=== PATIENT | female | born 1985 | race Caucasian/White ===

== ENCOUNTER 2021-05-04 13:50 | Outpatient (CLI) | payer OTHER, SELFPAY ==
[2021-05-04 16:35] LABS: Hepatitis B Surface Antigen Negative (Negative)
[2021-05-04 16:44] LABS: HIV 1/2 Ab P24 Ag Result Negative (Negative)
[2021-05-04 16:52] LABS: Hepatitis C Virus Antibody Negative (Negative)
[2021-05-05 14:57] LABS: Rapid Plasma Reagin Non-Reactive (NonReactive)
== END 2021-05-04 13:51 | disposition home or self-care (01) ==
PROVIDERS: Visit Provider Obstetrics & Gynecology
DX: Z11.3 Encounter for screening for infections with a predominantly sexual mode of transmission (principal)
CPT/HCPCS: 36415; 86592; 86695; 86696; 86703; 86803; 87340; G0432

== ENCOUNTER 2024-04-24 07:48 | Outpatient (CLI) | payer OTHER, SELFPAY ==
--- NOTE | ~2024-04-24 | MR_ITS ---
EXAMINATION: MR ankle LT wo con DATE: 04/24/2024 08:35 INDICATION: Left ankle pain and swelling. Tendinitis. TECHNIQUE: Magnetic resonance imaging (MRI) of the left ankle was performed without intravenous contr ast. COMPARISON: None. FINDINGS: Medial ankle ligaments: The superficial and deep components of the deltoid ligament are normal. Lateral ankle ligaments: There is artifact from surgical changes of fibula and talus in the area of anterior talofibular ligam ent. Calcaneofibular ligament and posterior talofibular ligament are normal. The anterior and posteri or tibiofibular ligaments are normal. Tendons: The medial and anterior ankle tendons are normal. The peroneal tendons are normal. Achilles tendon is normal. There is a skin marker lateral to the Achilles tendon. Plantar fascia: Normal. Bones/other: Alignment is normal. No fracture. The talar dome is normal. Fluid: There is no joint effusion. IMPRESSION: 1. No etiology for the patient's symptoms. 2. Artifact from surgical changes in the area of anterior talofibular ligament. Reviewed, dictated and finalized at location A. 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
== END 2024-04-24 07:49 | disposition home or self-care (01) ==
LOC: MICIMG 07:48
PROVIDERS: PCP Podiatrist Foot & Ankle Surgery; Visit Provider Podiatrist Foot & Ankle Surgery
DX: M76.72 Peroneal tendinitis, left leg (principal)
CPT/HCPCS: 73721

== ENCOUNTER 2024-08-22 13:44 | Outpatient (CLI) | payer OTHER, SELFPAY ==
--- NOTE | 2024-08-22 14:45 | NEURO_ITS ---
Impression: # Complains of left ankle pain. Status post ankle surgery. Non- diabetic. ? # Normal Nerve Conduction Study. ? # Normal needle/EMG exam. ? # Clinical correlation recommended. Nerve Conduction Studies Anti Sensory Summary Table ?Stim Site NR Peak (ms) P-T Amp (?V) Site1 Site2 Delta-P (ms) Dist (cm) Breezy (m/s) Left Sup Fibular Anti Sensory (Ant Lat Mall) 14 cm ? 2.8 24.0 14 cm Ant Lat Mall 2.8 16.0 57 Right Sup Fibular Anti Sensory (Ant Lat Mall) 14 cm ? 2.8 24.8 14 cm Ant Lat Mall 2.8 16.0 57 Left Sural Anti Sensory (Lat Mall) Calf ? 3.0 16.4 Calf Lat Mall 3.0 16.0 53 Right Sural Anti Sensory (Lat Mall) Calf ? 2.2 32.2 Calf Lat Mall 2.2 12.0 55 Motor Summary Table ?Stim Site NR Onset (ms) O-P Amp (mV) Site1 Site2 Delta-0 (ms) Dist (cm) Breezy (m/s) Left Peroneal Motor (Vastus Med) Ankle ? 3.3 5.1 Popit Ankle 7.0 39.0 56 Popit ? 10.3 6.1 Right Peroneal Motor (Vastus Med) Ankle ? 3.2 5.6 Popit Ankle 6.6 37.0 56 Popit ? 9.8 5.2 Left Tibial Motor (Abd Morton Brev) Ankle ? 3.7 13.5 Knee Ankle 7.8 42.0 54 Knee ? 11.5 10.8 Right Tibial Motor (Abd Morton Brev) Ankle ? 3.8 14.2 Knee Ankle 7.9 41.0 52 Knee ? 11.7 10.9 F Wave Studies ?NR F-Lat (ms) L-R F-Lat (ms) Left Peroneal (Mrkrs) (EDB) ? 42.69 2.22 Right Peroneal (Mrkrs) (EDB) ? 40.47 2.22 Left Tibial (Mrkrs) (Abd Hallucis) ? 43.00 0.04 Right Tibial (Mrkrs) (Abd Hallucis) ? 43.04 0.04 EMG ?Side Muscle Nerve Root Ins Act Fibs Amp Dur Recrt Comment Right AntTibialis Dp Br Fibular L4-5 Nml Nml Nml Nml Nml Right Gastroc Tibial S1-2 Nml Nml Nml Nml Nml Right Fibularis Long Sup Br Fibular L5-S1 Nml Nml Nml Nml Nml Right Flex Dig Long Tibial L5-S2 Nml Nml Nml Nml Nml Right Ext Dig Brev Dp Br Fibular L5, S1 Nml Nml Nml Nml Nml Right QuadratusFem QuadFemoris L4-5, S1 Nml Nml Nml Nml Nml Left AntTibialis Dp Br Fibular L4-5 Nml Nml Nml Nml Nml Left Gastroc Tibial S1-2 Nml Nml Nml Nml Nml Left Fibularis Long Sup Br Fibular L5-S1 Nml Nml Nml Nml Nml Left Flex Dig Long Tibial L5-S2 Nml Nml Nml Nml Nml Left Ext Dig Brev Dp Br Fibular L5, S1 Nml Nml Nml Nml Nml Left QuadratusFem QuadFemoris L4-5, S1 Nml Nml Nml Nml Nml MTDD
--- OUTSIDE RECORDS SUMMARY | 2024-08-22 15:31 | XMS_ITS | Clinical Summary ---
Author Organization [facility] [place] [address] Address [address] [place] [address] Care Team Providers Care Return Checker Name Role Phone Gauri Gallegos NP Primary Care Provide r Allergies Active Allergy Reactions Criticality Noted Date Comments Amoxicillin Shortness of breath,Edema,Wheezing Medium Reaction: Trouble Breathing, Clindamycin Hives Reaction: hives, Hydrocodone Itching Low 12/03/2022 Potassium Shortness of breath Reaction: Trouble Breathing, Pregabalin Hives Medium Reaction: Hives, Medications albuterol HFA (PROVENTIL HFA,VENTOLIN HFA,PROAIR HFA) 90 mcg/actuation inhaler Inhale 2 puffs every 6 (six) hours as needed for wheezing 1 each 05/29/2023 Active Active Problems Problem Noted Date Diagnosed Date Exercise counseling 04/23/2022 Assessment & Plan (04/23/2022 12:26 PM DIRECTOR OF CARDIAC REHABILITATION): Exercise counseling provided. Prescription given to the patient. See below: Major depressive disorder, recurrent episode, mo derate 03/11/2022 Assessment & Plan (03/11/2022 8:55 AM DIRECTOR OF CARDIAC REHABILITATION): Acute, persistent. Denies any active suicidal ideation. Did not tolerate Wellbutrin. Plan to start Viibryd 20 mg daily and evaluate in six weeks. Patient verbalized an understanding and agrees to proceed. Nightmares 04/30/2021 Assessment & Plan (07/23/2021 10:55 AM CDT): Subacute, persistent. Prazosin prescribed. 1 to 2 mg as discussed. May increase as discussed gradually to 5 mg. Will need to call back for prescription if needed. Monitor at interval as discussed. Assessment & Plan (04/30/2021 10:14 AM DIRECTOR OF CARDIAC REHABILITATION): Discussed use of Prazosin. She will call if frequency increases - and I will prescribe Prazosin 1-2 mg HS prn. Continue therapy. Continue to monitor. Relationship problems 11/14/2020 Assessment & Plan (11/14/2020 9:54 AM CDT): She reports that she is leaving her . She is going to [place] today with her kids. She has to be back for work in November. I can't do the selfishness, the double standards, I'm not happy. I've tried and tried. It's always my fault. Shannon, 15 year-old, her step-daughter - she fears losing her in the process. She has raised her since she was 6 years old. She has siblings with her mom - and Shannon fears she will lose her siblings if the patient adopts her. Her kids are 15, 9, 6, and 4. Suggested that she the therapist. Obesity (BMI 30.0-34.9) 11/14/2020 Assessment & Plan (11/14/2020 9:59 AM CDT): I discussed with the patient the use of phentermine as a tool to facilitate targeted weight loss. The benefit of using this medication was discussed at length the patient. Review risk of using this medication was also discussed with the patient. After lengthy discussion, it was determined that the benefit of using this medication outweighs the risk of using the medication. The patient verbalized an understanding of the benefit and risk of this medication and agreed to proceed with use of this medication. Goals for weight loss were discussed with the patient. Current weight: 178 lbs Target weight by next appointment: 150 lbs Long-term target weight: 128 lbs We discussed the need for lifestyle modification including changes to diet, incorporate regularly scheduled exercise, obtain sufficient sleep/maintaining proper sleep hygiene, and reduce overall level of stress. I had a detailed discussion with the patient regarding the potential of developing both acute and chronic cardiovascular problems from use of this medication. I advised the patient of the potential for serious reactions from taking phentermine including cardiac ischemia, tachycardia, hypertension, pulmonary hypertension, psychosis, dependency/abuse, and possible withdrawal symptoms discussed with the patient. I also advised the patient of common reactions including palpitations, tachycardia, elevated blood pressure, restlessness, dizziness, insomnia, euphoria, dysphoria, tremor, headache, unpleasant taste, diarrhea, constipation, urticaria, impotence, libido changes also discussed with the patient. The patient verbalized an understanding of possible serious and common reactions and expressed a desire to proceed with treatment. The patient was advised by me and agreed to discontinue the medication immediately if any of these symptoms were to develop. The patient was advised by me and agreed to proceed with urgent medical care if any of the aforementioned symptoms were to develop. The patient also agreed to participate in an overall lifestyle modification program including changes to intake of nutrients, physical activity as discussed and appropriate, proper sleep including treatment of obstructive sleep apnea as applicable, and participation in social activity, meditation, deep breathing, or other relaxation techniques as discussed. The patient agreed to track caloric intake with a journal, utilize an application for monitoring intake of calories such as Lose It or [employer] , or other programs such as Weight Watchers. I will re-evaluate treatment with the patient again at the next scheduled appointment. Other insomnia 02/02/2018 Assessment & Plan (11/18/2022 1:44 PM CDT): Chronic condition, currently stable. Advised the patient to focus on sleep hygiene. The patient does not report any worsening sleep-related difficulties at this time. Supportive, insight-oriented counseling provided. No change to treatment regimen at this time. Assessment & Plan (04/23/2022 12:26 PM DIRECTOR OF CARDIAC REHABILITATION): Chronic condition, currently stable. Advised the patient to focus on sleep hygiene. The patient does not report any worsening sleep-related difficulties at this time. Supportive, insight-oriented counseling provided. No change to treatment regimen at this time. Assessment & Plan (12/08/2021 3:45 PM CDT): Chronic, persistent. Nightmares making difficult to be able to sleep. Assessment & Plan (04/30/2021 10:06 AM DIRECTOR OF CARDIAC REHABILITATION): Chronic, persistent. Better with Seroquel. Plan to continue - off-label. Focus on sleep hygiene. Continue to monitor. Assessment & Plan (07/25/2020 9:27 AM CDT): Chronic, persistent. Focus on sleep hygiene. No change to treatment at this time. Continue to monitor. Assessment & Plan (03/09/2019 3:45 PM DIRECTOR OF CARDIAC REHABILITATION): Increase trazodone to 100 mg at bedtime. Assessment & Plan (10/29/2018 6:36 PM CDT): Chronic, persistent. Decrease trazodone due to side effects/intolerance. Assessment & Plan (10/09/2018 11:57 AM CDT): Chronic condition, currently stable. The patient does not report any worsening sleep-related difficulties at this time. No change to treatment regimen at this time. Supportive, insight-oriented counseling provided in the office today. Assessment & Plan (02/02/2018 9:41 AM CDT): Chronic issue, persistent symptoms, getting only 2 hr of sleep according to which he reports in the form of a nap in the afternoon. Discussed at length with the patient the importance of sleep hygiene. Focus on sleep hygiene. Change the Zoloft to the morning as discussed. Start trazodone 50 mg p.o. q.h.s.. The patient may take half of this dose or a full dose. Titrate up for effectiveness. If the patient calls and wants to increase the dose to 100 mg, I would be okay with doing so. Continue to monitor. Persistent depressive disorder 12/15/2017 Overview (01/12/2018): Managed by psychiatry. Assessment & Plan (11/18/2022 1:42 PM CDT): Chronic, stable. Depressive symptoms are well controlled on current medication regimen. Tolerating medications without any reported side effects. The patient denies active suicidal and homicidal ideation. The following changes were made at today's appointment: none Reevaluate treatment/symptoms at interval per scheduled appointment. Assessment & Plan (09/09/2022 11:58 AM CDT): Chronic, stable. Depressive symptoms are well controlled on current medication regimen. Tolerating medications without any reported side effects. The patient denies active suicidal and homicidal ideation. The following changes were made at today's appointment: none Reevaluate treatment/symptoms at interval per scheduled appointment. Assessment & Plan (04/23/2022 12:25 PM DIRECTOR OF CARDIAC REHABILITATION): Chronic condition, persistent symptoms, but functioning at or close to baseline at this time. Symptoms are reasonably well controlled on current medication regimen. The patient does not endorse any active suicidal ideation. Medication changes today: None Ongoing management to be provided as discussed and at interval as planned. Assessment & Plan (10/19/2021 4:15 PM CDT): Chronic,persistent. The patient denies active suicidal and homicidal ideation. The following changes were made at today's appointment: Wellbutrin XL 150 mg daily Reevaluate treatment/symptoms at interval per scheduled appointment. Assessment & Plan (04/30/2021 10:13 AM DIRECTOR OF CARDIAC REHABILITATION): Chronic, persistent. Depressive symptoms are partially well controlled on current medication regimen. Tolerating medications without any reported side effects. The patient denies active suicidal and homicidal ideation. The following changes were made at today's appointment: None Reevaluate treatment/symptoms at interval per scheduled appointment. Assessment & Plan (02/12/2021 3:10 PM CDT): Chronic, stable. Denies any active suicidal ideation. Continue current management. Assessment & Plan (11/14/2020 10:01 AM CDT): Chronic, stable. Denies any active suicidal ideation. Continue current medications. Assessment & Plan (07/25/2020 9:31 AM CDT): Chronic, persistent. She has reportedly gained 50 lb of weight without obvious etiology. Thyroid studies ordered. Additional lab work ordered. Denies any active suicidal ideation. Complaining about decreased libido secondary to Prozac. Primarily reports that her is complaining more than she is having complaints as such. Continue Prozac at current dose and add lamotrigine with workup in process to rule out underlying thyroid dysfunction. Evaluate at interval as discussed. Assessment & Plan (03/09/2019 3:47 PM DIRECTOR OF CARDIAC REHABILITATION): Chronic, persistent. Discuss treatment options with the patient. Would prefer to add low-dose lamotrigine for symptomatic control of depression and increase Zoloft to 200 mg-but patient does not wish to do so. Also confounded by her in sufficient amount of sleep--reportedly only getting 5 hours per night. She goes to bed but cannot fall asleep for several hours. Trazodone will be increased. The patient does not report any current suicidal or homicidal ideation. The patient does not report any auditory or visual hallucinations. The patient does not report any paranoid ideation. The patient does not report any symptoms of hypomania or miranda. Patient would like to discontinue Zoloft. Feels it is not as efficacious as it was in the past. While I do not necessarily agree with her, she is fairly insistent and eventually agreed to cross titrate Zoloft with Prozac. Assessment & Plan (10/29/2018 6:36 PM CDT): Chronic, stable. Depressive symptoms are partially controlled on current medication regimen. Tolerating medications without any reported side effects. The patient denies active suicidal and homicidal ideation. The following changes were made at today's appointment: Increased Zoloft. Reevaluate treatment/symptoms at interval per scheduled appointment. Assessment & Plan (10/09/2018 11:58 AM CDT): Chronic, stable. Depressive symptoms are well controlled on current medication regimen. Tolerating medications without any reported side effects. The patient denies active suicidal and homicidal ideation. The following changes were made at today's appointment: None. Reevaluate treatment/symptoms at interval per scheduled appointment. Assessment & Plan (02/02/2018 9:03 AM CDT): Chronic, seems to have improved since starting Zoloft. Doing better overall. Denies any suicidal or homicidal ideation. Continue Zoloft 50 mg daily. Assessment & Plan (12/15/2017 12:00 PM CDT): Chronic issue, currently untreated. Dean depression inventory completed in the office today with a total score of 35. Moderate severity. The patient does not report any current suicidal or homicidal ideation. The patient does not report any auditory or visual hallucinations. The patient does not report any paranoid ideation. The patient does not report any symptoms of hypomania or miranda. Start Zoloft 50 mg daily. Full informed consent provided by the patient to initiate Zoloft. The patient verbalized an understanding of the reason for initiate Zoloft including the diagnosis and target symptoms for the medication recommended, the possible benefits and/or intended outcome of treatment, and as applicable, all available procedures involved in the proposed treatment, the possible risks and side effects, (including risk of medications to women and women who are ), the possible alternatives and complementary treatments, the possible results of not taking the recommended medications, (including but not limited to worsening symptoms, psychiatric instability, and even ), the possibility that this medication dose and/or frequency may need to be adjusted over time in consultation with Dr. Pérez. The patient verbalized an understanding of the need for ongoing medical and psychiatric monitoring on an interval basis. At this time, the patient verbalizes full consent to initiate Zoloft and understands the benefits and risks and wishes to proceed with full, informed consent. Referral to the therapist. Referral also for trauma focused therapy regarding childhood issues. Posttraumatic stress disorder 12/15/2017 Overview (01/12/2018): Managed by psychiatry. Assessment & Plan (11/18/2022 1:43 PM CDT): Chronic, better now. Denies SI. Continue to monitor at interval. Assessment & Plan (09/09/2022 11:58 AM CDT): Chronic, persistent. Increased since going back to [place] for a wedding. Continue to monitor at interval. Assessment & Plan (04/23/2022 12:25 PM DIRECTOR OF CARDIAC REHABILITATION): Chronic, persistent, but functioning at or close to baseline at this time. Continue with therapy. Continue to monitor. Assessment & Plan (03/11/2022 8:56 AM DIRECTOR OF CARDIAC REHABILITATION): Chronic, persistent, continue therapy. Viibryd to be started. Continue to monitor. Assessment & Plan (12/08/2021 3:48 PM CDT): Chronic, persistent. Continue therapy. Assessment & Plan (10/19/2021 4:07 PM CDT): Chronic, stable. Continue with therapy. Assessment & Plan (04/30/2021 3:08 PM DIRECTOR OF CARDIAC REHABILITATION): Subacute, persistent. Linked with therapist. Continue therapy. Continue to monitor. Assessment & Plan (02/12/2021 3:10 PM CDT): Chronic, stable. No medication changes at this time. Continue to monitor at interval. Assessment & Plan (07/25/2020 9:28 AM CDT): Chronic, persistent. Did not address today. Assessment & Plan (10/29/2018 6:36 PM CDT): Chronic, persistent, continue therapy. Zoloft increased. Continue to monitor. Assessment & Plan (02/02/2018 9:03 AM CDT): Chronic, persistent. Continue Zoloft. Continue therapy. She just started seeing the therapist in the office and has several appointments Assessment & Plan (12/15/2017 12:00 PM CDT): Chronic, persistent symptoms. Start Zoloft 50 mg daily and monitor. Referral to therapist. Trauma in childhood 12/15/2017 Assessment & Plan (12/15/2017 12:01 PM CDT): Referral provided to therapist. Alli score = six. ARTURO (generalized anxiety disorder) 12/15/2017 Overview (01/12/2018): Managed by psychiatry. Assessment & Plan (11/18/2022 1:44 PM CDT): Chronic condition with persistent symptoms. Medication changes today: none Insight-oriented, supportive counseling provided. Continued management as discussed Assessment & Plan (09/09/2022 11:57 AM CDT): Chronic condition with persistent symptoms. Medication changes today: Propranolol 20 mg TID prn for moderate anxiety + Lorazepam 0.5 mg daily prn for severe anxiety Insight-oriented, supportive counseling provided. Continued management as discussed Assessment & Plan (04/23/2022 12:25 PM DIRECTOR OF CARDIAC REHABILITATION): Chronic condition with persistent symptoms. Medication changes today: None Insight-oriented, supportive counseling provided. Continued management as discussed Assessment & Plan (03/11/2022 8:56 AM DIRECTOR OF CARDIAC REHABILITATION): Chronic condition with persistent symptoms. Medication changes today: Start Viibryd 20 mg daily. Titrate up as needed for effectiveness. Insight-oriented, supportive counseling provided. Continued management as discussed Assessment & Plan (12/08/2021 3:48 PM CDT): Chronic condition, persistent. The patient does not report any worsening anxiety at this time. Medication changes today: None Supportive, insight-oriented counseling provided. Ongoing monitoring of treatment will be provided. Assessment & Plan (10/19/2021 11:44 AM CDT): Chronic, persistent. Assessment & Plan (04/30/2021 10:13 AM DIRECTOR OF CARDIAC REHABILITATION): Acute, persistent. Increase buspirone from 10 mg BID to 20 mg BID. Monitor at interval in 1 month as discussed. Assessment & Plan (02/12/2021 3:09 PM CDT): Chronic, persistent. Continue Prozac 40 mg daily. Start Buspirone 10 mg daily for 2 weeks and if tolerating, then increase to 10 mg BID Monitor in 4-6 weeks. Assessment & Plan (11/14/2020 10:00 AM CDT): Chronic, stable. No medication changes at this time. Continue to monitor at interval. Assessment & Plan (07/25/2020 9:28 AM CDT): Chronic condition, persistent but stable symptoms. Medication changes today: Lamotrigine added for depressive symptoms. Remains on Prozac. Continue management as discussed. Support provided. Assessment & Plan (03/09/2019 3:44 PM DIRECTOR OF CARDIAC REHABILITATION): Chronic, persistent. Cross titrate the Zoloft with Prozac as discussed. Monitor at interval. Assessment & Plan (10/29/2018 6:36 PM CDT): Chronic condition, currently stable. The patient does not report any worsening anxiety at this time. Medication changes today: Decrease dose of propranolol, increase Zoloft Supportive, insight-oriented counseling provided in the office today. Ongoing monitoring of treatment will be provided. The patient has been advised to contact the office for any concerns between now and next scheduled appointment. The patient verbalized an understanding of the plan developed today and agreed to follow up as recommended. Assessment & Plan (10/09/2018 11:58 AM CDT): Chronic, persistent symptoms of anxiety that would benefit with return to therapy. Financial impediment/barrier. Ativan prescribed. Continue Zoloft. Referred to therapy. Assessment & Plan (02/02/2018 9:02 AM CDT): Chronic, persistent symptoms of anxiety related to multiple psychosocial to situations and also sleep deprivation. Targeting sleep with medication. Also suggested switching to Zoloft to the morning so that her sleep can improvement overall her anxiety improves. Continue Zoloft 50 mg daily and if the patient is using more of the Valium than once daily, I will increase the dose of Zoloft to 100 mg daily. Increase Valium to 10 mg daily as discussed with the patient the office today. Do not drive while taking this medication. Do not use alcohol taking this medication. Patient verbalized an understanding and agreed to do so. Assessment & Plan (12/15/2017 12:01 PM CDT): F41.1 - Generalized Anxiety Disorder - chronic, persistent symptoms of Generalized Anxiety Disorder including restlessness or feeling of feeling keyed up or on edge, being easily fatigued, difficulty concentrating or mind going blank, irritability, muscle tension, and sleep disturbance. The patient reports that the anxiety, worry, or physical symptoms cause clinically significant distress or impairment in social, occupational, or other important areas of functioning. Initiate the following medications: - Zoloft 50 mg daily Valium 5 mg up to once daily for acute anxiety only Full informed consent provided by the patient to start/continue the current medication (or medications). The patient verbalized an understanding of the reason for initiating/continuing including the diagnosis and target symptoms for the medication recommended, the possible benefits and/or intended outcome of treatment, and as applicable, all available procedures involved in the proposed treatment, the possible risks and side effects, (including risk of medications to women and women who are ), the possible alternatives and complementary treatments, the possible results of not taking the recommended medications, (including but not limited to worsening symptoms, psychiatric instability, and even ), the possibility that this medication dose and/or frequency may need to be adjusted over time in consultation with Dr. Pérez. The patient verbalized an understanding of the need for ongoing medical and psychiatric monitoring on an interval basis. At this time, the patient verbalizes full consent to initiate/continue and understands the benefits and risks and wishes to proceed with full, informed consent. - supportive, insight-oriented counseling provided in the office today. - the patient is not participating in therapy I will see the patient back in the office in six weeks or sooner as needed. Essential thrombocythemia (CMS/HCC) 01/22/2013 Overview (03/09/2022): Already had a work-up with hematology at [facility] Assessment & Plan (01/12/2018 3:20 PM CDT): Has been worked-up in the past, but would like to see a local Heme/Onc. Referral generated. Migraines 01/22/2013 Immunizations Immunization Administration Dates Next Due Influenza, Trivalent, Preservative Free, Intramu scular 01/22/2016 Influenza, Unspecified 01/30/2018,01/01/2016 PPD TEST 07/07/2020 Tdap 12/23/2015 Surgical History Surgery Date Site/Laterality Comments TUBAL LIGATION tubal ligation Medical History Medical History Date Comments Essential thrombocythemia (HCC) Essential thrombocytosis Depression Vision problems 2018 Family History Medical History Relation Name Comments Hypertension Brother Hypertension Mother Hypertension Other Family history of Hypertension; Relation Name Status Comments Brother Mother Alive Other Social History Tobacco Use Types Packs/Day Years Used Date Smoking Tobacco: Never Smokeless Tobacco: Never Alcohol Use Standard Drinks/Week Comments Yes 0 (1 standard drink = 0.6 oz pur e alcohol) PHQ-2 Answer Date Recorded PHQ-2 Score 1 12/22/2018 Personal Safety Answer Date Recorded Have you ever been in or are you currently in a harmful physical or emotional relationship or is someone making you feel afraid or unsafe? Denies 09/16/2023 Comments No Sex and Gender Information Value Date Recorded Sex Assigned at Not on file Legal Sex Female 10:14 PM DIRECTOR OF CARDIAC REHABILITATION Gender Identity Female 10/05/2018 11:20 AM CDT Sexual Orientation Straight 10/05/2018 11 :20 AM CDT Obstetrics History Last Filed Vital Signs Vital Sign Reading Time Taken Comments Blood Pressure 117/72 09/16/2023 12:15 PM CDT Pulse 71 09/16/2023 12:15 PM CDT Temperature 36.4 C (97.6 F) 09/16/2023 7:50 AM CDT Respiratory Rate 17 09/16/2023 12:15 PM CDT Oxygen Saturation 97% 09/16/2023 12:15 PM CDT Inhaled Oxygen Concentration - - Weight 77.1 kg (170 lb) 09/16/2023 7:50 AM CDT Height 160 cm (5' 3 ) 09/16/2023 7:50 AM CDT Body Mass Index 30.11 09/16/2023 7:50 AM CDT Plan of Treatment Health Maintenance Due Date Last Done Comments Hepatitis C Screening 1987 Varicella Vaccines (1 of 2 - 13+ 2-dose series) 2000 Hepatitis B Screening 2005 Cervical Cancer Screening 05/02/2016 05/02/2015 Depression Screening 01/12/2019 01/12/2018, 06/26/2017, 06/26/2017 Regular Well Visit/Exam 18-64 01/12/2019 01/12/2018 Covid-19 Vaccine (2023-2 5 season) 2024 01/17/2021, 12/27/2020 Influenza Vaccine (Season Ended) 2024 01/30/2018, 01/22/2016, 01/01/2016 DTaP/Tdap/Td Vaccine (2 - Td or Tdap) 12/22/2025 12/23/2015 HPV Vaccines Aged Out No longer eligi ble based on patient's age to complete this topic Pneumococcal vaccine <65 Aged Out No longer eligible based on patient's age to complete this topic Procedures Procedure Name Priority Date/Time Associated Diagnosis Comments PAP SMEAR WITH HPV Routine 05/02/2015 from Last 3 Months or Most Recently Relevant to Health Maintenance Results * PAP SMEAR WITH HPV (05/02/2015) Pap smear Normal [facility] Provider MD HEALTH MAINTENANCE Final Result from Last 3 Months or Most Recently Relevant to Health Maintenance Insurance [facility] Care Teams Return Checker Relationship Specialty Start Date End Date Gauri Gallegos NP [address] [place] [address] PCP - General Emergency Medicine 05/26/23
--- OUTSIDE RECORDS SUMMARY | 2024-08-22 15:31 | XMS_ITS | Referral Summary ---
Author Organization [facility] [place] [address] Address [address] [place] [address] Care Team Providers Care Mechanical And Auto Body Car Checker Name Role Phone Gauri Gallegos NP [...] 04/23/2022 Assessment & Plan (04/23/2022 12:26 PM SOLE SKIVER): Exercise counseling provided. Prescription given to the patient. See below: Major depressive disorder, recurrent episode, mo derate 03/11/2022 Assessment & Plan (03/11/2022 8:55 AM SOLE SKIVER): Acute, persistent. Denies any active suicidal ideation. [...] discussed. Assessment & Plan (04/30/2021 10:14 AM SOLE SKIVER): Discussed use of Prazosin. She will call if frequency increases - and I will prescribe Prazosin 1-2 mg HS prn. Continue therapy. Continue to monitor. Relationship problems 11/14/2020 Assessment & Plan (11/14/2020 9:54 AM CDT): She reports that she is leaving her . She is going to [place] today with her kids. She has to [...] of calories such as Lose It or Variable , or other programs such as Weight [...] time. Assessment & Plan (04/23/2022 12:26 PM SOLE SKIVER): Chronic condition, currently stable. Advised the patient to focus on sleep hygiene. The patient does not report any worsening sleep-related difficulties at this time. Supportive, insight-oriented counseling provided. No change to treatment regimen at this time. Assessment & Plan (12/08/2021 3:45 PM CDT): Chronic, persistent. Nightmares making difficult to be able to sleep. Assessment & Plan (04/30/2021 10:06 AM SOLE SKIVER): Chronic, persistent. Better with Seroquel. Plan to continue - off-label. Focus on sleep hygiene. Continue to monitor. Assessment & Plan (07/25/2020 9:27 AM CDT): Chronic, persistent. Focus on sleep hygiene. No change to treatment at this time. Continue to monitor. Assessment & Plan (03/09/2019 3:45 PM SOLE SKIVER): Increase trazodone to 100 mg at bedtime. [...] appointment. Assessment & Plan (04/23/2022 12:25 PM SOLE SKIVER): Chronic condition, persistent symptoms, but functioning at [...] appointment. Assessment & Plan (04/30/2021 10:13 AM SOLE SKIVER): Chronic, persistent. Depressive symptoms are partially well [...] discussed. Assessment & Plan (03/09/2019 3:47 PM SOLE SKIVER): Chronic, persistent. Discuss treatment options with the [...] interval. Assessment & Plan (04/23/2022 12:25 PM SOLE SKIVER): Chronic, persistent, but functioning at or close to baseline at this time. Continue with therapy. Continue to monitor. Assessment & Plan (03/11/2022 8:56 AM SOLE SKIVER): Chronic, persistent, continue therapy. Viibryd to be started. Continue to monitor. Assessment & Plan (12/08/2021 3:48 PM CDT): Chronic, persistent. Continue therapy. Assessment & Plan (10/19/2021 4:07 PM CDT): Chronic, stable. Continue with therapy. Assessment & Plan (04/30/2021 3:08 PM SOLE SKIVER): Subacute, persistent. Linked with therapist. Continue therapy. [...] discussed Assessment & Plan (04/23/2022 12:25 PM SOLE SKIVER): Chronic condition with persistent symptoms. Medication changes today: None Insight-oriented, supportive counseling provided. Continued management as discussed Assessment & Plan (03/11/2022 8:56 AM SOLE SKIVER): Chronic condition with persistent symptoms. Medication changes [...] persistent. Assessment & Plan (04/30/2021 10:13 AM SOLE SKIVER): Acute, persistent. Increase buspirone from 10 mg [...] provided. Assessment & Plan (03/09/2019 3:44 PM SOLE SKIVER): Chronic, persistent. Cross titrate the Zoloft with [...] Already had a work-up with hematology at [facility] Assessment & Plan (01/12/2018 3:20 PM CDT): Has been worked-up in the past, but would like to see a local Heme/Onc. Referral generated. Migraines 01/22/2013 Immunizations Immunization Administration Dates Next Due Influenza, Trivalent, Preservative Free, Intramu scular 01/22/2016 Influenza, Unspecified 01/30/2018,01/01/2016 PPD TEST 07/07/2020 Tdap 12/23/2015 Social History Tobacco Use Types Packs/Day Years [...] on file Legal Sex Female 10:14 PM SOLE SKIVER Gender Identity Female 10/05/2018 11:20 AM CDT Sexual Orientation Straight 10/05/2018 11 :20 AM CDT Last Filed Vital Signs Vital Sign Reading [...] 09/16/2023 7:50 AM CDT Plan of Treatment Not on file Procedures Procedure Name Priority Date/Time Associated Diagnosis Comments PAP SMEAR WITH HPV Routine 05/02/2015 from Last 3 Months or Most Recently Relevant to Health Maintenance Results * PAP SMEAR WITH HPV (05/02/2015) Pap smear Normal us Historical Provider HEALTH MAINTENANCE Final Result from Last 3 Months or Most Recently Relevant to Health Maintenance Insurance [facility] Care Teams Mechanical And Auto Body Car Checker Relationship Specialty Start Date End Date Gauri Gallegos NP [address] [place] [address] PCP - General Emergency Medicine 05/26/23
--- OUTSIDE RECORDS SUMMARY | 2024-08-22 15:31 | XMS_ITS | Clinical Summary ---
Author Organization [facility] Address [address] [place] [id number] Care Team Providers Care Bedspread Seamer Name Role Phone Unavailable Primary Care Provider Unavailabl e Encounters Date Type Department Care Team Description 05/29/2024 External Device Data [facility] ABSTRACTION Provider, Abstract from Last 3 Months Social History Tobacco Use Types Packs/Day Years Used Date Smoking Tobacco: Never Assessed Comments Unknown Sex and Gender Information Value Date Recorded Sex Assigned at Not on file Legal Sex Female 3:10 PM UNIT TRUST MANAGER Gender Identity Not on file Sexual Orientation Not on file Plan of Treatment Health Maintenance Due Date Last Done Comments HEPATITIS B VACCINES (1 of 3 - 19+ 3-dose series) 2006 HPV/Cotest (21-29) 2008 CERVICAL CANCER SCREENING 2017 HPV/Cotest (30-65) 2017 PAP SMEAR 2017 INFLUENZA VACCINE (#1) 2023 01/22/2016 DTAP/TDAP/TD VACCINES (2 - T d or Tdap) 12/22/2025 12/23/2015 HPV VACCINES Aged Out No longer eligi ble based on patient's age to complete this topic Insurance [employer] MANAGED CHOICE
--- OUTSIDE RECORDS SUMMARY | 2024-08-22 15:31 | XMS_ITS | Encounter Summary ---
Author Organization [facility] Address [address] [place] [address] Phone Care Team Providers Care Graduate School Dean Name Role Phone Gauri Gallegos APRN, CNP [facility] Reason for Referral * Consult, Test & Initiate Treatment (Routine) - Closed Specialty Diagnoses / Procedures Referred By Adwoa munoz Referred To Contact Diagnoses Essential thrombocythemia (HCC) Gauri Gallegos APRN, CAPTAIN/CHECK AIRMAN [address] [place] [address] Phone: tel: fax: [facility] [address] [place] [phone] Phone: tel: fax: Referral ID Status Reason Start Date Expiration Date Visits Re quested Visits Authorized [id number] Closed 06/21/2024 1 1 Scheduling Instructions Gauri is being referred to hematology or other specialist in patient's insurance network for thrombocythemia. See below for Gauri's current medications, allergies and problem list. CURRENT MEDS: Current Outpatient Medications: atorvastatin (LIPITOR) 20 MG Tablet, Take 1 Tablet by mouth nightly., Disp: 90 Tablet, Rfl: 3 gabapentin (NEURONTIN) 300 MG Capsule, Take 300 mg by mouth nightly., Disp: , Rfl: propranolol (INDERAL) 10 MG Tablet, Take 1 Tablet by mouth 3 times daily. As needed for anxiety, Disp: 90 Tablet, Rfl: 3 triamcinolone (KENALOG) 0.1 % Ointment, Rub small amount well into affected skin BID, Disp: 30 g, Rfl: 0 Vilazodone HCl 40 MG Tablet, Take 1 Tablet by mouth daily., Disp: 90 Tablet, Rfl: 1 No current facility-administered medications for this visit. ALLERGIES: -- Amoxicillin -- Anaphylaxis -- Clindamycin -- Hives -- Reaction: hives, -- Hydrocodone -- Itching PROBLEM LIST: Patient Active Problem List: Essential thrombocythemia (HCC) Major depressive disorder, recurrent episode, moderate (HCC) ARTURO (generalized anxiety disorder) Posttraumatic stress disorder TING WORKER SUPERVISOR Encounter Details Date Type Department Care Team (Late st Contact Info) Description 06/21/2024 Results Follow-Up [facility] [place] [address] [place] [address] Gauri Gallegos APRN, CNP [address] [place] [address] THYROID STIMULATING HORMONE (TSH), LIPID PANEL, CMP (COMPREHENSIVE METABOLIC PANEL), Additional followed-up results: 5 Social History Tobacco Use Types Packs/Day Years Used Date Smoking Tobacco: Never Smokeless Tobacco: Never Alcohol Use Standard Drinks/Week Comments Yes 0 (1 standard drink = 0.6 oz pur e alcohol) [employer] Utilities Answer Date Recorded In the past 12 months has [employer], Language [employer], oil, or water [employer] threatened to shut off services in your home? No 06/18/2024 Social Connection and Isolat ion Panel [NHANES] Answer Date Recorded In a typical week, how many times do you talk on the phone with family, friends, or neighbors? More than three times a week 06/18/2024 How often do you get togethe r with friends or relatives? Three times a week 06/18/2024 How often do you attend [facility] or christian services? Never 06/18/2024 Do you belong to any clubs o r organizations such as methodist groups, unions, fraternal or athletic groups, or school groups? Yes 06/18/2024 How often do you attend meet ings of the clubs or organizations you belong to? 1 to 4 times per year 06/18/2024 Are you , , di vorced, , never , or living with a partner? 06/18/2024 AUDIT-C Answer Date Recorded Q1: How often do you have a drink containing alc ohol? 2-4 times a month 06/18/2024 Q2: How many drinks containi ng alcohol do you have on a typical day when you are drinking? 1 or 2 06/18/2024 Q3: How often do you have si x or more drinks on one occasion? Never 06/18/2024 Overall Financial Resource Strain (CARDIA) Answe r Date Recorded How hard is it for you to pa y for the very basics like food, housing, medical care, and heating? Patient declined 06/18/2024 PHQ-2 Answer Date Recorded Total Score - Questions 1-9 0 06/02 [facility]at ional [facility] - Occupational Stress Questionnaire Answer Date Recorded Do you feel stress - tense, restless, nervous, or anxious, or unable to sleep at night because your mind is troubled all the time - these days? Very much 06/18/2024 Exercise Vital Sign Answer Date Recorde d On average, how many days pe r week do you engage in moderate to strenuous exercise (like a brisk walk)? 0 days 06/18/2024 On average, how many minutes do you engage in exercise at this level? 0 min 06/18/2024 Hunger Vital Sign Answer Date Recorded Within the past 12 months, y ou worried that your food would run out before you got the money to buy more. Never true 06/18/19 25 Within the past 12 months, t he food you bought just didn't last and you didn't have money to get more. Never true 06/18/2024 PRAPARE - Transportation Answer Date Re corded In the past 12 months, has l ack of transportation kept you from medical appointments or from getting medications? No 06/02 In the past 12 months, has l ack of transportation kept you from meetings, work, or from getting things needed for daily living? No 06/18/2024 Housing Stability Vital Sign Answer Danial e Recorded In the last 12 months, was t here a time when you were not able to pay the mortgage or rent on time? Yes 09/18/2023 In the last 12 months, how many places have you lived? 1 09/18/2023 In the last 12 months, was t here a time when you did not have a steady place to sleep or slept in a residential (including now)? No 09/18/2023 Housing Stability Vital Sign Answer Danial e Recorded In the last 12 months, was t here a time when you were not able to pay the mortgage or rent on time? Patient declined 06/18/19 25 In the past 12 months, how m any times have you moved where you were living? 0 06/18/2024 At any time in the past 12 m [facility], were you homeless or living in a residential (including now)? No 06/18/2024 Comments No Sex and Gender Information Value Date Recorded Sex Assigned at Female 05/20/2023 4:14 PM PRINTING WORKER SUPERVISOR Legal Sex Female 12:27 AM CDT Gender Identity Female 05/20/2023 4:14 PM PRINTING WORKER SUPERVISOR Sexual Orientation Straight 05/20/2023 4: 14 PM PRINTING WORKER SUPERVISOR documented as of this encounter Miscellaneous Notes * Telephone Encounter - Gauri Gallegos APRN, ADAN - 06/21/2024 12:25 PM CST Restart baby ASA daily. I would like her to see heme again because her levels are very high. TING WORKER SUPERVISOR * Telephone Encounter - Leslie Culver RN - 06/21/2024 11:48 AM CST See [employer] message. TING WORKER SUPERVISOR * Telephone Encounter - Leslie Culver, RN - 06/21/2024 10:52 AM CST See [employer]ign[employer] message. TING WORKER SUPERVISOR documented in this encounter Plan of Treatment Upcoming Encounters Date Type Department Care Team (Late st Contact Info) Description 09/20/2024 8:10 AM CDT Lab [facility] [place] [address] [place] [address] [facility] 06/20/2025 3:45 PM PRINTING WORKER SUPERVISOR Office Visit [facility] [place] [address] [place] [id number] Gauri Gallegos APRN, CAPTAIN/CHECK AIRMAN [address] [place], [place] [id number] Scheduled Orders Name Type Priority Associated Diagnoses Orde r Schedule COMPLETE BLOOD COUNT (CBC) WITH DIFF Lab Routine Elevated cholesterol Elevated LDL cholesterol level Expected: 09/18/2024, Expires: 12/19/2024 CMP (COMPREHENSIVE METABOLIC PANEL) Lab Routine Elevated cholesterol Elevated LDL cholesterol level Expected: 09/18/2024, Expires: 12/19/2024 LIPID PANEL Lab Routine Elevated cholesterol Elevated LDL cholesterol level Expected: 09/18/2024, Expires: 12/19/2024 Scheduled Referrals Name Type Priority Associated Diagnoses Orde r Schedule EXTERNAL HEMATOLOGY ONCOLOGY REFERRAL Outpatient Referral Routine Essential thrombocythemia (HCC) Expected: 06/21/2024, Expires: 06/21/2025 documented as of this encounter Visit Diagnoses Diagnosis Elevated cholesterol- Primary Pure hypercholesterolemia Elevated LDL cholesterol level Pure hypercholesterolemia Essential thrombocythemia (HCC) Essential thrombocythemia documented in this encounter Additional Health Concerns Assessment Noted Time PHQ-9 Depression Total Score: 0 06/19/19 25 3:43 PM PRINTING WORKER SUPERVISOR documented as of this encounter Care Teams Graduate School Dean Relationship Specialty Start Date End Date Gauri Gallegos APRN, ADAN [address] [place] [address] PCP - General Advanced Practice Nurse 05/20/23 documented as of this encounter
--- OUTSIDE RECORDS SUMMARY | 2024-08-22 15:31 | XMS_ITS | Clinical Summary ---
Author Organization [facility] Address [address] [place] [address] Care Team Providers Care Dietitian Consultant Name Role Phone None, Provider MD Primary Care Provider Unavaila ble Allergies Active Allergy Reactions Criticality Noted Date Comments Amoxicillin Shortness of Breath High 06/06/2021 Medications busPIRone 10 MG tablet Take 20 mg by mouth 2 (two) times daily. 1 Active vitamin D3, cholecalciferol, 1.25 MG (25665 UT) capsule Take 50,000 Units by mouth once a week. 1 Active FLUoxetine 20 MG capsule Take 60 mg by mouth daily. 1 Active lamoTRIgine 25 MG tablet 2 Active ondansetron 4 MG disintegrating tablet TAKE 1 TABLET BY MOUTH EVERY 8 HOURS NEEDED FOR NAUSEA FOR UP TO 28 DOSES. *2ND LINE* 1 Active QUEtiapine 100 MG tablet Take 100 mg by mouth nightly. 1 Active spironolactone 50 MG tablet Take 100 mg by mouth daily. 1 Active Active Problems No known active problems Social History Tobacco Use Types Packs/Day Years Used Date Smoking Tobacco: Never Smokeless Tobacco: Never Comments No Sex and Gender Information Value Date Recorded Sex Assigned at Not on file Legal Sex Female 7:15 AM CUSTOMER ADVISOR Gender Identity Female 06/03/2021 10:23 AM CUSTOMER ADVISOR Sexual Orientation Straight 06/03/2021 10 :23 AM CUSTOMER ADVISOR Last Filed Vital Signs Vital Sign Reading Time Taken Comments Blood Pressure 118/76 06/06/2021 8:44 AM CUSTOMER ADVISOR Pulse 99 06/06/2021 8:44 AM CUSTOMER ADVISOR Temperature 36.7 C (98 F) 06/06/2021 8:44 AM CUSTOMER ADVISOR Respiratory Rate 16 06/06/2021 8:44 AM CUSTOMER ADVISOR Oxygen Saturation 98% 06/06/2021 8:44 AM CUSTOMER ADVISOR Inhaled Oxygen Concentration - - Weight 70.3 kg (155 lb) 06/06/2021 8:44 AM CUSTOMER ADVISOR Height 160 cm (5' 3 ) 06/06/2021 8:44 AM CUSTOMER ADVISOR Body Mass Index 27.46 06/06/2021 8:44 AM CUSTOMER ADVISOR Plan of Treatment Health Maintenance Due Date Last Done Comments Cervical Cancer Screening Pa p Smear (Age 30 to 64) Every 3 Years 1987 Annual Physical 1990 Hepatitis C 2005 DTaP, Tdap and Td Vaccines ( 1 - Tdap) 2006 Hepatitis B Vaccines (1 of 3 - 19+ 3-dose series) 2006 Cervical Cancer Screening Pa p with HPV Testing (Age 30 to 64) Every 5 Years 2017 Cervical Cancer Screening with HPV 2017 COVID-19 Vaccine ( - 2023-2 5 season) 2024 HPV Vaccines Aged Out No longer eligi ble based on patient's age to complete this topic Meningococcal B Vaccine Aged Out No l onger eligible based on patient's age to complete this topic Meningococcal Vaccine Aged Out No nelly patty eligible based on patient's age to complete this topic Pneumococcal Vaccine: Pediat rics (0 to 5 Years) and At-Risk Patients (6 to 49 Years) Aged Out No longer eligible b ased on patient's age to complete this topic RSV Immunizations Under 20 Months Aged Out No longer eligible based on patient's age to complete this topic Insurance [employer] Care Teams Dietitian Consultant Relationship Specialty Start Date End Date None, Provider, PCP - General 06/06/21
--- OUTSIDE RECORDS SUMMARY | 2024-08-22 15:31 | XMS_ITS | Clinical Summary ---
Author Organization [facility] Address [address] [place] [address] Phone Care Team Providers Care Lottery Sales Clerk Name Role Phone Desi Glalegos APRN, PHYSICAL THERAPY RESIDENT Primary Care P rovider Allergies Active Allergy Reactions Criticality Noted Date Comments Amoxicillin Anaphylaxis 03/17/2021 Clindamycin Hives 05/20/2023 Reaction: hives, Hydrocodone Itching Low 12/03/2022 Medications propranolol (INDERAL) 10 MG TabletIndication s:ARTURO (generalized anxiety disorder) Take 1 Tablet by mouth 3 times daily. As needed for anxiety 90 Tablet 3 4 Active Vilazodone HCl 40 MG TabletIndication s:ARTURO (generalized anxiety disorder),Major depressive disorder, recurrent episode, moderate (HCC) Take 1 Tablet by mouth daily. 90 Tablet 1 4 Active gabapentin (NEURONTIN) 300 MG Capsule Take 300 mg by mouth nightly. 5 Active triamcinolone (KENALOG) 0.1 % OintmentIndicati ons:Allergic contact dermatitis, unspecified trigger Rub small amount well into affected skin BID 30 g 5 Active atorvastatin (LIPITOR) 20 MG TabletIndication s:Elevated cholesterol,Elev ated LDL cholesterol level Take 1 Tablet by mouth nightly. 90 Tablet 3 5 Active Active Problems Problem Noted Date Diagnosed Date Major depressive disorder, recurrent episode, mo derate 03/11/2022 05/20/2023 Overview (05/20/2023): Last Assessment & Plan: Acute, persistent. Denies any active suicidal ideation. Did not tolerate Wellbutrin. Plan to start Viibryd 20 mg daily and evaluate in six weeks. Patient verbalized an understanding and agrees to proceed. ARTURO (generalized anxiety disorder) 12/15/2017 05/20/2023 Overview (05/20/2023): Managed by psychiatry. Last Assessment & Plan: Chronic condition with persistent symptoms. Medication changes today: none Insight-oriented, supportive counseling provided. Continued management as discussed Posttraumatic stress disorder 12/15/2017 Overview (01/19/2024): Managed by psychiatry. Essential thrombocythemia 01/22/20132023 Overview (05/20/2023): Already had a work-up with hematology at [facility] Last Assessment & Plan: Has been worked-up in the past, but would like to see a local Heme/Onc. Referral generated. Encounters Date Type Department Care Team Description 06/21/2024 Results Follow-Up [facility] [address] [place] [address] Desi Gallegos, MECHANICAL PLANNER, PHYSICAL THERAPY RESIDENT THYROID STIMULATING HORMONE (TSH), LIPID PANEL, CMP (COMPREHENSIVE METABOLIC PANEL), Additional followed-up results: 5 06/20/2024 8:20 AM DANCE HALL HOSTESS Lab [facility] [address] [place] [address] Lab, [facility] (Adult); Irregular periods Discharge Disposition: Discharged to home or Selfcare 06/20/2024 Travel 06/19/2024 3:45 PM DANCE HALL HOSTESS Office Visit [facility] [address] [place] [address] Desi Gallegos APRN, PHYSICAL THERAPY RESIDENT Preventative health care (Adult) (Primary Dx); ARTURO (generalized anxiety disorder); Major depressive disorder, recurrent episode, moderate (HCC); Complex regional pain syndrome type 1 affecting left lower leg; Allergic contact dermatitis, unspecified trigger; Irregular periods; Middle ear effusion, right Discharge Disposition: Discharged to home or Selfcare 06/18/2024 Travel from Last 3 Months Immunizations Immunization Administration Dates Next Due Influenza Vaccine 01/22/2016 Influenza Vaccine,unspecified Formulation 2017,01/01/2016 TDAP Vaccine 12/23/2015 Tuberculin Skin Test; Purifi ed Protein Derivative Solutiol 07/07/2020 Social History Tobacco Use Types Packs/Day Years Used Date Smoking Tobacco: Never Smokeless Tobacco: Never Tobacco Cessation:Counseling Given: No Alcohol Use Standard Drinks/Week Comments Yes 0 (1 standard drink = 0.6 oz pur e alcohol) [employer] Answer Date Recorded In the past 12 months has [employer], gas, oil, or water [employer] threatened to shut off services in your [...] week 06/18/2024 How often do you attend [facility] or spiritism services? Never 06/18/2024 Do you belong to any clubs o r organizations such as muslim groups, unions, fraternal or athletic groups, or [...] Total Score - Questions 1-9 0 06/02 [facility] - Occupational Stress Questionnaire Answer Date Recorded [...] place to sleep or slept in a snf (including now)? No 09/18/2023 Housing Stability Vital [...] any time in the past 12 m [facility], were you homeless or living in a snf (including now)? No 06/18/2024 Comments No Sex and Gender Information Value Date Recorded Sex Assigned at Female 05/20/2023 4:14 PM DANCE HALL HOSTESS Legal Sex Female 12:27 AM CDT Gender Identity Female 05/20/2023 4:14 PM DANCE HALL HOSTESS Sexual Orientation Straight 05/20/2023 4: 14 PM DANCE HALL HOSTESS Last Filed Vital Signs Vital Sign Reading Time Taken Comments Blood Pressure 124/56 06/19/2024 3:42 PM DANCE HALL HOSTESS Pulse 111 06/19/2024 3:42 PM DANCE HALL HOSTESS Temperature 36.2 C (97.2 F) 06/19/2024 3:42 PM DANCE HALL HOSTESS Respiratory Rate 18 06/19/2024 3:42 PM DANCE HALL HOSTESS Oxygen Saturation 97% 06/19/2024 3:42 PM DANCE HALL HOSTESS Inhaled Oxygen Concentration - - Weight 74.8 kg (165 lb) 06/19/2024 3:42 PM DANCE HALL HOSTESS Height 160 cm (5' 3 ) 06/19/2024 3:42 PM DANCE HALL HOSTESS Body Mass Index 29.23 06/19/2024 3:42 PM DANCE HALL HOSTESS Plan of Treatment Upcoming Encounters Date Type Department Care Team (Late st Contact Info) Description 09/20/2024 8:10 AM CDT Lab [facility] [place] [address] [place] [address] [facility] 06/20/2025 3:45 PM DANCE HALL HOSTESS Office Visit [facility] [place] [address] [place] [address] Desi Gallegos, MECHANICAL PLANNER, PHYSICAL THERAPY RESIDENT [address] [place] [address] Health Maintenance Due Date Last Done Comments Pap Smear 2008 SARS-COV-2 Immunization (3 - Pfizer risk series) 02/14/2021 01/17/2021, 12/27/2020 Influenza Immunization (Season Ended) 2024 01/30/2018, 01/22/2016, 01/01/2016 Td Immunization Every 10 Years (Adults With 1 Tdap) 12/22/2025 12/23/2015 Cervical Cancer Screening (CCS) 06/02/2028 HPV/Cotest 06/02/2028 06/02/2023, 06/02/2023 Pneumococcal Immunization Combined (1 of 2 - PCV) 05/20/2043 Postponed from 0 2006 (Patient Temporarily Declines) Respiratory Syncytial Virus (RSV) Immunization (Adult) (1 - 1-dose 75+ series) 2062 DTaP/Tdap/Td Immunization Discontinued 12/23/2015 Hepatitis C Virus (HCV) Screening Discontinued 05/04/2021 Hepatitis B Immunization Discontinued Meningococcal Immunization (ACWY) Aged Out No longer eligible b ased on patient's age to complete this topic Rotavirus Immunization Aged Out No lo nger eligible based on patient's age to complete this topic Procedures Procedure Name Priority Date/Time Associated Diagnosis Comments CBC WITH AUTO DIFFERENTIAL Routine 06/20/2024 8:18 AM DANCE HALL HOSTESS Preventative health care (Adult) TESTOSTERONE Routine 06/20/2024 8:18 AM DANCE HALL HOSTESS Irregular periods ESTRADIOL Routine 06/20/2024 8:18 AM DANCE HALL HOSTESS Irregular periods PROGESTERONE Routine 06/20/2024 8:18 AM DANCE HALL HOSTESS Irregular periods FOLLICLE STIMULATING HORMONE (FSH) Routine 06/20/2024 8:18 AM DANCE HALL HOSTESS Irregular periods TESTOSTERONE Routine 06/20/2024 8:18 AM DANCE HALL HOSTESS Irregular periods ESTRADIOL Routine 06/20/2024 8:18 AM DANCE HALL HOSTESS Irregular periods PROGESTERONE Routine 06/20/2024 8:18 AM DANCE HALL HOSTESS Irregular periods FOLLICLE STIMULATING HORMONE (FSH) Routine 06/20/2024 8:18 AM DANCE HALL HOSTESS Irregular periods CMP (COMPREHENSIVE METABOLIC PANEL) Routine 06/20/2024 8:18 AM DANCE HALL HOSTESS Preventative health care (Adult) COMPLETE BLOOD COUNT (CBC) WITH DIFF Routine 06/20/2024 8:18 AM DANCE HALL HOSTESS Preventative health care (Adult) LIPID PANEL Routine 06/20/2024 8:18 AM DANCE HALL HOSTESS Preventative health care (Adult) THYROID STIMULATING HORMONE (TSH) Routine 06/20/2024 8:18 AM DANCE HALL HOSTESS Preventative health care (Adult) HUMAN PAPILLOMA VIRUS (HPV) 06/02/2023 12:00 AM DANCE HALL HOSTESS HEPATITIS PANEL ACUTE (AHP) 05/04/2021 12:00 AM DANCE HALL HOSTESS from Last 3 Months or Most Recently Relevant to Health Maintenance Results * ESTRADIOL (06/20/2024 8:18 AM DANCE HALL HOSTESS) ESTRADIOL, SERUM 131 pg/mL 06/20/2024 10:25 PM DANCE HALL HOSTESS [facility] Blood Venipuncture / Unknown 06/20/2024 8:18 AM DANCE HALL HOSTESS 06/20/2024 8:18 AM DANCE HALL HOSTESS Narrative [facility] - 06/20/2024 10:25 PM DANCE HALL HOSTESS ESTRADIOL VALUE NORMAL MENSTRUATING FEMALE FOLLICULAR PHASE 21-251 pg/mL MID CYCLE PHASE 38-649 pg/mL LUTEAL PHASE 21-312 pg/mL POST MENOPAUSAL ON HRT <10-144 pg/mL POST MENOPAUSAL NOT ON HRT <10-28 pg/mL MALES 11-44 pg/mL Patients undergoing Fulvestrant therapy should not be tested by this method as it could produce falsely elevated estradiol results. us Desi Gallegos APRN, CNP CHEMISTRY ORDER SILVIA Final Result [facility] [address] [place] [address], * TESTOSTERONE (06/20/2024 8:18 AM DANCE HALL HOSTESS) TESTOSTERONE, TOTAL 40 14 - 53 ng/dL 06/20/2024 10:25 PM DANCE HALL HOSTESS [facility] Blood Venipuncture / Unknown 06/20/2024 8:18 AM DANCE HALL HOSTESS 06/20/2024 8:18 AM DANCE HALL HOSTESS Desi Gallegos APRN, ADAN CHEMISTRY ORDER SILVIA Final Result Performing Organization Address [facility] de Phone Number [facility] [address] [place] [address], [place] * FOLLICLE STIMULATING HORMONE (FSH) (06/20/2024 8:18 AM DANCE HALL HOSTESS) FSH 4.9 mIU/mL 06/20/2024 11:07 PM DANCE HALL HOSTESS [facility] Blood Venipuncture / Unknown 06/20/2024 8:18 AM DANCE HALL HOSTESS 06/20/2024 8:18 AM DANCE HALL HOSTESS Narrative [facility] - 06/20/2024 11:07 PM DANCE HALL HOSTESS Normally Menstruating Females Follicular Phase 3.0 - 8.1 Mid-cycle Peak 2.6 - 16.7 Luteal Phase 1.4 - 5.5 Postmenopausal Females 26.7 - 133.4 Desi Gallegos APRN, PHYSICAL THERAPY RESIDENT CHEMISTRY ORDER SILVIA Final Result Performing Organization Address [facility] de Phone Number [facility] [address] [place] [address], [place] * PROGESTERONE (06/20/2024 8:18 AM DANCE HALL HOSTESS) PROGESTERONE 12.8 ng/mL 06/20/2024 1:42 PM DANCE HALL HOSTESS [facility] Blood Venipuncture / Unknown 06/20/2024 8:18 AM DANCE HALL HOSTESS 06/20/2024 8:18 AM DANCE HALL HOSTESS Narrative [facility] - 06/20/2024 1:42 PM DANCE HALL HOSTESS FEMALE NORMAL RANGE <0.5 NG/ML FOLLICULAR 1.2-15.9 NG/ML LUTEAL <0.5 NG/ML POSTMENOPAUSAL MALE NORMAL RANGE <0.5 NG/ML us Desi Gallegos APRN, CNP CHEMISTRY ORDER SILVIA Final Result [facility] [address] [place] [address] * (ABNORMAL) CBC WITH AUTO DIFFERENTIAL (06/20/2024 8:18 AM [facility]) WBC 6.89 4.00 - 12.00 10(3)/mcL 06/20/2024 12:21 PM [facility] RBC 4.42 3.80 - 5.30 10(6)/mcL 06/20/2024 12:21 PM [facility] HEMOGLOBIN (HGB) 13.1 12.0 - 15.8 g/dL 06/20/2024 12:21 PM [facility] HEMATOCRIT (HCT) 40.4 36.0 - 47.0 % 06/20/2024 12:21 PM [facility] MCV 91.4 82.0 - 96.0 fL 06/20/2024 12:21 PM [facility] MCH 29.6 26.0 - 34.0 pg 06/20/2024 12:21 PM [facility] MCHC 32.4 31.0 - 36.0 g/dL 06/20/2024 12:21 PM [facility] PLATELET COUNT 780(H) 140 - 440 10(3)/mcL 06/20/2024 12:21 PM [facility] RDW 15.9(H) 11.8 - 15.5 % 06/20/2024 12:21 PM [facility] MPV 9.1(L) 9.7 - 12.4 fL 06/20/2024 12:21 PM [facility] NEUTROPHILS 71.3 47.0 - 73.0 % 06/20/2024 12:21 PM DANCE HALL HOSTESS [facility] LYMPHOCYTES 20.0 18.0 - 42.0 % 06/20/2024 12:21 PM [facility] MONOCYTES 5.1 4.0 - 12.0 % 06/20/2024 12:21 PM [facility] EOSINOPHILS 1.7 0.0 - 5.0 % 06/20/2024 12:21 PM [facility] BASOPHILS 1.9(H) 0.0 - 1.0 % 06/20/2024 12:21 PM DANCE HALL HOSTESS [facility] ABSOLUTE NEUTROPHILS 4.91 1.60 - 7.70 10(3)/[facility] 06/20/2024 12:21 PM [facility] ABSOLUTE LYMPHOCYTES 1.38 1.30 - 3.20 10(3)/[facility] 06/20/2024 12:21 PM [facility] ABSOLUTE MONOCYTES 0.35 0.20 - 1.00 10(3)/[facility] 06/20/2024 12:21 PM [facility] ABSOLUTE EOSINOPHIL 0.12 0.00 - 0.40 10(3)/[facility] 06/20/2024 12:21 PM [facility] ABSOLUTE BASOPHILS 0.13(H) 0.00 - 0.10 10(3)/[facility] 06/20/2024 12:21 PM [facility] NRBC PER 100 WBC 0 06/20/19 12:21 PM [facility] Blood Venipuncture / Unknown 06/20/2024 8:18 AM [employer] [facility]ESS 06/20/2024 8:18 AM [facility] us Desi Gallegos APRN, ADAN HEMATOLOGY ORDE TISHA Final Result [facility] [address] [place] [address] * THYROID STIMULATING HORMONE (TSH) (06/20/2024 8:18 AM DANCE HALL HOSTESS) TSH 1.311 0.300 - 5.000 mIU/L 06/20/2024 1:02 PM DANCE HALL HOSTESS [facility] Blood Venipuncture / Unknown 06/20/2024 8:18 AM [employer]ALL [employer]OSTESS 06/20/2024 8:18 AM D[employer] HALL [employer]OSTESS Desi Gallegos APRN, PHYSICAL THERAPY RESIDENT CHEMISTRY ORDER SILVIA Final Result [facility] [address] [place] [address] * (ABNORMAL) LIPID PANEL (06/20/2024 8:18 AM DANCE HALL HOSTESS) [facility] CHOLESTEROL 289(H) <200 mg/dL 06/20/2024 12:50 PM DANCE HALL HOSTESS [facility] TRIGLYCERIDES 99 <150 mg/dL 06/20/2024 12:50 PM [facility] HDL CHOLESTEROL 48 >40 mg/dL 12:50 PM [facility] LDL 221(H) <130 mg/dL 06/20/2024 12:50 PM [facility] VLDL 20 10 - 50 mg/dL 06/20/2024 12:50 PM [facility] CHOL/HDL RATIO 6.0(H) 0.0 - 4.4 06/20/2024 12:50 PM [facility] NON-HDL CHOLESTEROL 241(H) <130 mg/dL 06/20/2024 12:50 PM [facility] IS THE PATIENT REQUIRED TO BE FASTING? Yes 06/20/2024 12:50 PM [facility]ALL [employer] HAS THE PATIENT BEEN FASTING? Yes 06/20/2024 12:50 PM [facility] Blood Venipuncture / Unknown 06/20/2024 8:18 AM [employer]ESS 06/20/2024 8:18 AM [employer]ALL [employer]ESS Desi Gallegos APRN, PHYSICAL THERAPY RESIDENT CHEMISTRY ORDER SILVIA Final Result [facility] [address] [place] [address] * (ABNORMAL) CMP (COMPREHENSIVE METABOLIC PANEL) (06/20/2024 8:18 AM DANCE HALL HOSTESS) SODIUM 142 136 - 145 mmol/L 06/20/2024 12:50 PM [facility] POTASSIUM 4.6 3.5 - 5.1 mmol/L 06/20/2024 12:50 PM [facility] CHLORIDE 109(H) 98 - 107 mmol/L 06/20/2024 12:50 PM [facility] CO2, VENOUS 23 22 - 30 mmol/L 06/20/2024 12:50 PM [facility] ANION GAP 14.6 <18.0 mmol/L 06/20/2024 12:50 PM [facility] GLUCOSE 88 70 - 99 mg/dL 06/20/2024 12:50 PM [facility] BUN 14 5 - 18 mg/dL 06/20/2024 12:50 PM [facility] CREATININE, BLOOD 0.72 0.60 - 1.00 mg/dL 06/20/2024 12:50 PM [facility] BUN/CREATININE RATIO 19 12 - 20 ratio 06/20/2024 12:50 PM [facility] TOTAL PROTEIN 8.1(H) 6.0 - 8.0 g/dL 06/20/2024 12:50 PM [facility] ALBUMIN 4.9 3.5 - 5.0 g/dL 06/20/2024 12:50 PM [facility] A/G RATIO 1.5 1.0 - 2.2 06/20/2024 12:50 PM [facility] CALCIUM 9.7 8.7 - 10.5 mg/dL 06/20/2024 12:50 PM [facility] T BILI 0.5 0.2 - 1.2 mg/dL 06/20/2024 12:50 PM DANCE HALL HOSTESS [facility] SGOT (AST) 51(H) <43 U/L 06/20/2024 12:50 PM DANCE HALL HOSTESS [facility] SGPT (ALT) 79(H) <56 U/L 06/20/2024 12:50 PM DANCE HALL HOSTESS [facility] ALKALINE PHOSPHATASE 110 40 - 150 U/L 06/20/2024 12:50 PM DANCE HALL HOSTESS [facility] IS THE PATIENT REQUIRED TO BE FASTING? Yes 06/20/2024 12:50 PM DANCE HALL HOSTESS [facility] HAS THE PATIENT BEEN FASTING? Yes 06/20/2024 12:50 PM DANCE HALL HOSTESS [facility] GFR, ESTIMATED >60 >=60 06/20/2024 12:50 PM DANCE HALL HOSTESS [facility] Comment: Creatinine Clearance is the preferred criteria for selecting drug dose adjustments in renally impaired patients. The GFR is provided as additional pertinent clinical information. GFR is reported in mL/min/1.73 sq m. Calculation based on the Chronic Kidney Disease Epidemiology Collaboration (CKD- EPI) equation refit without adjustment for race. GFR, EST. >60 >=60 025 12:50 PM DANCE HALL HOSTESS [facility] GFR, EST. NONAFRICAN >60 >=60 06/20/2024 12:50 PM DANCE HALL HOSTESS [facility] Blood Venipuncture / Unknown 06/20/2024 8:18 AM [employer] HALL [employer]OSTESS 06/20/2024 8:18 AM DANCE HALL HOSTESS us Desi Gallegos MECHANICAL PLANNER, PHYSICAL THERAPY RESIDENT CHEMISTRY ORDER SILVIA Final Result [facility] [address] [place] [address] * HUMAN PAPILLOMA VIRUS (HPV) (06/02/2023 12:00 AM DANCE HALL HOSTESS) 06/02/2023 us Provider Scan LAB SEND OUTS Final Result SCAN * HEPATITIS PANEL ACUTE (AHP) (05/04/2021 12:00 AM DANCE HALL HOSTESS) 05/04/2021 us Provider Scan HEMATOLOGY ORDERABLES Final Resu lt SCAN from Last 3 Months or Most Recently Relevant to Health Maintenance Insurance [employer] Care Teams Lottery Sales Clerk Relationship Specialty Start Date End Date Desi Gallegos, MECHANICAL PLANNER, PHYSICAL THERAPY RESIDENT [address] [place] [address] PCP - General Advanced Practice Nurse 05/20/23
== END 2024-08-22 13:45 | disposition home or self-care (01) ==
PROVIDERS: PCP Podiatrist Foot & Ankle Surgery; Visit Provider Podiatrist Foot & Ankle Surgery
DX: G90.522 Complex regional pain syndrome I of left lower limb (principal)
CPT/HCPCS: 95886; 95910